=== PATIENT | female | born 1950 | race Caucasian/White ===

== ENCOUNTER 2019-03-10 22:31 | Emergency (ER) | payer MEDICARE, OTHER ==
[~2019-03-10] VITALS: Ht 162.6 cm; Wt 81.6 kg
--- OUTSIDE RECORDS SUMMARY | 2019-03-10 22:34 | XMS REPORT | Clinical Summary ---
Author Author [employer] [facility] [employer] Address Unknown Phone Unavailable Care Team Providers Care Results Engineer Name Role Phone Maria Alejandra Gomez MD PCP Allergies No Known Allergies Medications End Date Status Medication Sig Dispensed Refills Start Date Active amLODIPine (NORVASC) 10 1 tablet 0 mg tablet daily. 7 Active pravastatin (PRAVACHOL) 1 tablet 0 40 MG tablet daily. 7 Active triamterene-hydrochloroth 1 tablet 0 iazid (MAXZIDE) 75-50 mg daily. 7 per tablet Active zolpidem (AMBIEN) 10 mg 1 tablet 0 tablet nightly. 7 Active DECARA 50,000 unit 1 capsule 3 capsule once a week. 7 Active clonAZEPAM (KlonoPIN) 0.5 1 tablet 2 1 MG tablet (two) times a 7 day. 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 Last Filed Vital Signs Not on file Plan of Treatment Health Maintenance Due Date Last Done Comments BREAST CANCER SCREENING 1999 COLONOSCOPY SCREENING 1999 SHINGLES VACCINES (#1) 1999 65+ PNEUMOCOCCAL VACCINE 2014 (1 of 2 - PCV13) INFLUENZA VACCINE 03/17/2019 Results Not on fileafter 03/09/2018 Insurance Type Payer Benefit Subscriber ID Effective Phone Address Plan / Dates Group HMO AETNA MEDICARE AETNA xxxxxxxx [id number] MEDICARE resent HMO/PPO MCR PPO BCBS BCBS xxxxxxxxxxxx 2014- CHOICE Present PPO/[employer] PPO Advance Directives Patient has advance care planning documents on file. For more information, alysha worley contact: Mack Archer [address] [place] [address]
[2019-03-10] MEDS ORDERED: CLONIDINE HCL 0.1 MG TAB ONE (22:53)
[2019-03-10] MEDS ORDERED: CLONIDINE HCL 0.2 MG TAB PO ONE (23:00)
--- NOTE | 2019-03-10 23:29 | NUR ---
pt states feels much better, dizziness resolved. denies CP or SOB. NAD noted.
[2019-03-10 23:46] VITALS: BP 146/78
== END 2019-03-11 00:01 | disposition home or self-care (01) ==
LOC: FSED 22:31
DX: R42 Dizziness and giddiness (principal); I16.0 Hypertensive urgency
CPT/HCPCS: 99282